=== PATIENT | female | born 1980 | race Caucasian/White ===

== ENCOUNTER 2020-04-03 16:10 | Emergency (ER) | payer OTHER, SELFPAY ==
[2020-04-03 16:23] VITALS: BP 146/105; PULSE 124; RESP 18; TEMP 37.1; O2SAT 99; BMI 31.9
[2020-04-03] MEDS: Lidocaine HCl 2 % MPF 5 ML VIAL SUBCUT (17:00)
--- NOTE | 2020-04-03 17:24 | ED_ITS ---
HPI - Wound/Laceration General Chief Complaint: Wound/Laceration Stated Complaint: Laceration Time Seen by Provider: 04/03/20 16:24 Source: patient Mode of arrival: ambulatory Limitations: no limitations History of Present Illness HPI narrative: Patient tells me that she was washing some dishes and a broken glass cut her left wrist causing a laceration. Her tetanus is out of date. Extremity Location: left: wrist Place: home Patient tetanus UTD: No Context: accidental Associated symptoms: none Related Data Allergies Allergy/AdvReac Type Severity Reaction Status Date / Time iodine [IODINE] Allergy Unknown RASH,HIVES, Verified 04/03/20 16:16 redburning rash SHELLFISH Allergy Unknown ANAPHYLAXIS Verified 04/03/20 16:16 Shellfish Allergy Unknown hives, Uncoded 04/03/20 16:16 itching, swelling, shortness of breath Review of Systems Review of Systems: Yes all other systems are reviewed and are negative Constitutional: Constitutional: Reports no additional constitutional complaints, Denies body ache(s), Denies chills, Denies fever(s), Denies headache(s) and Denies weakness Eyes: Eyes: Reports no additional eye complaints and Denies change in vision ENT: Reports system reviewed and no additional complaints, except as documented, Denies dizziness, Denies headache(s), Denies nasal congestion, Denies nasal discharge and Denies neck pain Cardiovascular: Cardiovascular: Reports no additional cardiovascular complaints, Denies chest pain, Denies leg edema and Denies dyspnea Respiratory: Respiratory: Reports no additional respiratory complaints, Denies cough and Denies dyspnea Gastrointestinal: Gastrointestinal: Reports no additional gastrointestinal complaints, Denies abdominal pain, Denies diarrhea, Denies nausea and Denies vomiting Genitourinary: Genitourinary: Reports no additional female genitourinary complaints and Denies urinary incontinence Musculoskeletal: Musculoskeletal: Reports no additional musculoskeletal complaints, Denies back pain, Denies arthralgias, Denies joint swelling, Denies neck pain, Denies numbness and Denies tingling Integumentary/Breasts: Skin/Breast: Reports system reviewed and no additional complaints, except as docu and Denies rash Comments: skin laceration Neurologic: Reports system reviewed and no additional complaints, except as documented, Denies Abnormal speech present, Denies dizziness, Denies headache(s), Denies numbness, Denies tingling and Denies weakness PMFSH Past Medical History Attestation statement: The following information was validated with the patient. Source: old records reviewed and nursing notes reviewed Social History Social History Advance Directives: No Advance Directives Information Provided: Yes Physical Exam Vital Signs: Vital Signs: Last Vital Signs Temp 98.7 F 04/03/20 16:23 Pulse 89 04/03/20 17:36 Resp 17 04/03/20 17:36 BP 152/86 H 04/03/20 17:36 Pulse Ox 98 04/03/20 17:36 Body Mass Index 31.9 Const: General: cooperative, healthy appearing, comfortable and no acute distress Orientation/consciousness: patient oriented x3 Limitations: no limitations HENMT: Head: Yes normal to inspection Ears: hearing grossly normal bilater ally General nose exam: Normal external nose present Face and sinus: Yes normal facial exam Mouth: Normal oral and palatal mucosa present Throat: Yes posterior oropharynx normal Eyes: General: appearance normal, both eyes and all related structures Pupils: Equal, round and reactive pupils present Neck: Neck: Yes normal visual inspection Chest: Chest palpation & inspection: normal inspection of the chest Resp: Effort & Inspection: normal respiratory effort Auscultation: clear to auscultation bilaterally Cardio: Rate: regular rate Rhythm: regular rhythm Peripheral pulses: Peripheral pulses 2+ throughout GI: Inspection: Yes normal to inspection Palpation (GI): Soft to palpation and nontender Auscultation: normal bowel sounds Back/Spine/Pelvis: Thoracic/Lumbar Spine: thoracic and lumbar spine normal to inspection Skin: General skin exam: no rashes or lesions noted Neuro: General: patient oriented x3, no focal motor deficits and normal sen sation to monofilament Cranial nerves: Yes Equal, round and reactive pupils present Cognition (Neuro): normal cognition Speech: No Abnormal speech present Gait exam (Neuro): Normal gait present Motor exam (neuro): 5/5 motor strength present throughout Extrem: Other: Over the distal volar wrist there is a 4 cm laceration with active bleeding. Full range of motion of wrist and hand. Palpable radial and ulnar pulses. Neurovascular intact distally General: Yes normal to inspection Course Course Course Narrative: See procedure note. Patient was given tetanus isn't up-to-date. Recommended return in 7-10 days for suture removal. Reviewed suture care at home. Full range of motion of the affected joint and distal extremity with no CMS changes. Reviewed worrisome signs and symptoms of when to return to the emergency department. Comfortable discharge home. Heart rate and blood pressure improved postprocedure Procedures Laceration Laceration 1: Site: upper extremity (wrist ) Side (If applicable): left Size (cm): 4 Description: linear Depth: simple, single layer Local Anesthetic: lidocaine 2% Pre-repair: wound explored and irrigated extensively Skin layer closed with: nylon Size (cm): 5-0 Number of sutures: 9 Technique: simple, interrupted MDM - Wound/Laceration Medical Records Attestation: I reviewed the patient's medical records. Lab Data Attestation: I reviewed the patient's lab results. Discharge Plan Discharge Clinical Impression: Laceration Patient Disposition: Home, Self-Care Instructions: Laceration (ED) Additional Instructions: Sutures out in 7-10 days Water may run over the laceration but no soaking in water Keep covered for 24 hrs Referrals: Joao Duff MD [Primary Care Provider] - 2 days (as needed ) Stand Alone Forms: Work/School Release Interventions: ED Discharge Assessment Last Done: 04/03/20 17:44 Discharge Date/Time: 04/03/20 17:45
[2020-04-03 17:36] VITALS: BP 152/86; PULSE 89; RESP 17; O2SAT 98
== END 2020-04-03 17:45 | disposition home or self-care (01) ==
PROVIDERS: Emergency Provider Emergency Medicine Emergency Medical Services; PCP Internal Medicine
DX: S61.512A Laceration without foreign body of left wrist, initial encounter (principal); W25.XXXA Contact with sharp glass, initial encounter; Y93.G1 Activity, food preparation and clean up; Y92.010 Kitchen of single-family (private) house as the place of occurrence of the external cause; Y99.9 Unspecified external cause status
CPT/HCPCS: 12002; 90471; 90715; 99283; 99284

== ENCOUNTER 2020-04-12 15:55 | Emergency (ER) | payer OTHER, SELFPAY ==
[2020-04-12 17:36] VITALS: BP 131/90; PULSE 86; RESP 16; TEMP 36.8; O2SAT 97; BMI 32.6
--- NOTE | 2020-04-12 18:07 | ED.WOUNDLAC ---
HPI - Wound/Laceration General Chief Complaint: Wound/Laceration Stated Complaint: suture removal Time Seen by Provider: 04/12/20 18:07 Source: patient Mode of arrival: ambulatory Limitations: no limitations History of Present Illness HPI narrative: Patient is a 39-year-old with no significant past medical history who is here for suture removal. On the April 03, she cut her left wrist on a piece of broken glass and received 9 sutures. She states since then she has had some yellow drainage from the wound, it is painful to touch and she states it is warm. She has also had some numbness and tingling in her hand. She does state she has full range of motion and can feel all of her fingers. Denies fevers. She also states she would like to go back to work starting in 2 days and would like a note. Related Data Previous Rx's Medication Instructions Recorded cephalexin [Keflex] 500 mg PO QID #28 cap 04/12/20 sulfamethoxazole-trimethoprim 1 tab PO Q12H #14 tab 04/12/20 [Bactrim DS] Allergies Allergy/AdvReac Type Severity Reaction Status Date / Time iodine [IODINE] Allergy Unknown RASH,HIVES, Verified 04/03/20 16:16 redburning rash SHELLFISH Allergy Unknown ANAPHYLAXIS Verified 04/03/20 16:16 Shellfish Allergy Unknown hives, Uncoded 04/03/20 16:16 itching, swelling, shortness of breath Review of Systems Review of Systems: Yes all other systems are reviewed and are negative PMFSH Social History Social History Advance Directives: No Advance Directives Information Provided: No Physical Exam Vital Signs: Vital Signs: Last Vital Signs Temp 98.3 F 04/12/20 17:36 Pulse 86 04/12/20 17:36 Resp 16 04/12/20 17:36 BP 131/90 H 04/12/20 17:36 Pulse Ox 97 04/12/20 17:36 Body Mass Index 32.6 Const: General: cooperative, healthy appearing, comfortable, no acute distress and well developed Orientation/consciousness: patient oriented x3 Limitations: no limitations HENMT: Head: Yes normal to inspection Eyes: General: appearance normal, both eyes and all related structures Neck: Neck: Yes normal visual inspection and Yes full ROM Resp: Effort & Inspection: normal respiratory effort and able to speak in complete sentences Skin: General skin exam: no rashes or lesions noted Neuro: General: patient oriented x3 Extrem: General: Yes normal to inspection Hand/finger images: 1. [address], skin is erythematous and warm, no drainage noted. Laceration is not completely healed. Course Course Course Narrative: 39-year-old female with no significant past medical history had sutures placed 9 days ago in this ED. Has had drainage, warmth and erythema, will give antibiotics, also wound is not completely healed, recommend she return in 3-4 days for recheck and suture removal. Reviewed worrisome signs on when to return to the ED. Discharge Plan Discharge Clinical Impression: Infected wound, Encounter for re-check of laceration wound Patient Disposition: Home, Self-Care Instructions: Wound Infection (ED) Prescriptions: New cephalexin [Keflex] 500 mg capsule 500 mg PO QID Qty: 28 RF: 0 sulfamethoxazole-trimethoprim [Bactrim DS] 800-160 mg tablet 1 tab PO Q12H Qty: 14 RF: 0 Referrals: Lacey Polk, BOOGIE [Primary Care Provider] - 2 days (Please have your sutures removed in 3-4 days, you can do this at your primary care doctor or any urgent care or return to the emergency department.)
== END 2020-04-12 18:40 | disposition home or self-care (01) ==
PROVIDERS: Emergency Provider Internal Medicine; PCP Hospitalist
DX: T81.41XA Infection following a procedure, superficial incisional surgical site, initial encounter (principal); M25.532 Pain in left wrist; Y83.9 Surgical procedure, unspecified as the cause of abnormal reaction of the patient, or of later complication, without mention of misadventure at the time of the procedure; Y92.9 Unspecified place or not applicable; Z79.899 Other long term (current) drug therapy
CPT/HCPCS: 99283

== ENCOUNTER 2020-11-28 12:56 | Outpatient (REF) | payer OTHER, SELFPAY ==
[2020-11-28 13:50] LABS: COVID-19 Test Negative (Negative)
== END 2020-11-28 12:57 | disposition home or self-care (01) ==
LOC: HO.LAB 12:56
PROVIDERS: Internal Medicine; PCP Internal Medicine; Visit Provider Nurse Practitioner Family
DX: R05 Cough (principal); Z20.822 Contact with and (suspected) exposure to COVID-19
CPT/HCPCS: 36415; 87635; C9803

== ENCOUNTER 2020-12-26 18:44 | Emergency (ER) | payer OTHER, SELFPAY | END 2020-12-26 21:48 | disposition left against medical advice (07) | PROVIDERS: Emergency Provider Emergency Medicine | DX: Z04.1 Encounter for examination and observation following transport accident (principal) ==

== ENCOUNTER 2021-01-19 12:17 | Outpatient (REF) | payer OTHER, SELFPAY | END 2021-01-19 12:18 | disposition home or self-care (01) | LOC: HO.LAB 12:17 | PROVIDERS: Nurse Practitioner Family; Visit Provider Internal Medicine | DX: R05.9 Cough, unspecified (principal); Z20.822 Contact with and (suspected) exposure to COVID-19 | CPT/HCPCS: U0003; U0005 ==

== ENCOUNTER 2021-06-23 19:36 | Emergency (ER) | payer OTHER, SELFPAY ==
--- NOTE | 2021-06-23 | ECG_ITS ---
Test Reason : chest pain Blood Pressure : / mmHG Vent. Rate : 091 BPM Atrial Rate : 091 BPM P-R Int : 162 ms QRS Dur : 082 ms QT Int : 334 ms P-R-T Axes : 000 135 145 degrees QTc Int : 410 ms Normal sinus rhythm Left posterior fascicular block Nonspecific T wave abnormality Abnormal ECG When compared with ECG of 22-NOV-2019 13:01, Nonspecific T wave abnormality now evident in Lateral leads Referred By: Generic ED Physician Electronically Signed By:UMESH BOYLE
--- NOTE | ~2021-06-23 | XR_ITS ---
EXAMINATION: XR CHEST CLINICAL INFORMATION: Shortness of breath COMPARISON: 11/22/2019 TECHNIQUE: Frontal view of the chest was obtained. FINDINGS: The lungs are well expanded. There is no focal consolidation, edema, or effusion. No pneumothorax. The cardiomediastinal silhouette is within normal limits. No acute osseous abnormality. XR/XR chest 1V IMPRESSION: No acute pulmonary finding.
[2021-06-23 20:21] VITALS: BP 130/74; PULSE 87; RESP 24; TEMP 37.7; O2SAT 99; BMI 33.4
--- NOTE | 2021-06-23 20:56 | ECG_ITS ---
Test Reason : cp Blood Pressure : / mmHG Vent. Rate : 088 BPM Atrial Rate : 088 BPM P-R Int : 168 ms QRS Dur : 084 ms QT Int : 342 ms P-R-T Axes : 045 048 048 degrees QTc Int : 413 ms Normal sinus rhythm Normal ECG When compared with ECG of 23-JUN-2021 20:13, Nonspecific T wave abnormality no longer evident in Lateral leads Referred By: Vinnie Saravia Electronically Signed By:Javi Thompson
[2021-06-23 21:30] VITALS: BP 134/75; PULSE 93; RESP 20; O2SAT 97
--- NOTE | 2021-06-23 21:30 | PC.NURSE ---
Pt given wh
--- NOTE | 2021-06-23 21:44 | ED_ITS ---
HPI - Chest Pain General Chief Complaint: Chest Pain Stated Complaint: chest pain Time Seen by Provider: 06/23/21 21:29 Source: patient Mode of arrival: ambulatory Limitations: no limitations History of Present Illness HPI narrative: Patient not vaccinated against COVID woke up today with body aches difficulty in breathing subjective fever headache saturating 99% on room air having right- sided chest pain Related Data Previous Rx's Medication Instructions Recorded azithromycin 250 mg tablet See Rx Instructions PO .COMPLEX #6 11/28/20 tab nicotine 21 mg/24 hr daily 1 patch TRANSDERMAL Q24H 28 Days 11/28/20 transdermal patch (Nicoderm CQ) #28 ea paroxetine HCl 10 mg tablet 10 mg PO DAILY #90 tab 12/22/20 Allergies Allergy/AdvReac Type Severity Reaction Status Date / Time SHELLFISH Allergy Severe ANAPHYLAXIS Verified 11/28/20 12:06 iodine [IODINE] Allergy Intermediate RASH,HIVES, Verified 11/28/20 12:06 redburning rash Shellfish Allergy Severe hives, Uncoded 11/28/20 12:06 itching, swelling, shortness of breath Review of Systems Review of Systems: Yes all other systems are reviewed and are negative PMFSH Past Medical History Medical History General medical examination Productive cough Surgical History History of D&C Family History Family History Mother Asthma Father Mental health disorder Social History Social History Housing: Apartment Alcohol intake: never Patient Tobacco Use Status: Current everyday Tobacco user Tobacco use type: Cigarette Cigarette Packs Per Day: 1 Cigarettes Per Day: 20 Advance Directives: No Advance Directives Information Provided: No service: No Current occupational status: employed Physical Exam Vital Signs: Vital Signs: Last Vital Signs Temp 99.8 F 06/23/21 20:21 Pulse 87 06/23/21 20:21 Resp 24 H 06/23/21 20:21 BP 130/74 06/23/21 20:21 Pulse Ox 99 06/23/21 20:21 BMI result Body Mass Index 33.4 Appearance: Alert. Oriented X3. No acute distress. Anxious Eyes: No pallor or icterus ENT: Pharynx normal. Oral Mucosa moist Neck: Normal inspection. Neck supple. CVS: Normal heart rate and rhythm. Pulses normal. Respiratory: No respiratory distress. Equal air entry bilateral, no wheezing/rales/rhonchi Abdomen: Soft and nontender. Bowel sounds are present, no mass palpable, no CVA tenderness Skin: Skin warm and dry. Normal skin color. Normal skin turgor. Extremities: No lower extremity edema. No calf tenderness Neuro: Oriented X 3. Discharge Plan Discharge Prescriptions: No Action paroxetine HCl 10 mg tablet 10 mg PO DAILY Qty: 90 1RF nicotine [Nicoderm CQ] 21 mg/24 hr patch 24 hour 1 patch transdermal Q24H 28 Days Qty: 28 2RF azithromycin 250 mg tablet See Rx Instructions PO .COMPLEX Qty: 6 0RF Rx Instructions: take 500 mg today (day 1), then 250 mg for 4 days (days 2-5) PO
[2021-06-23 23:12] LABS: COVID-19 Test Negative (Negative)
--- NOTE | 2021-06-23 23:32 | ED.GENADULT ---
HPI - General Adult General Chief complaint: Chest Pain Stated complaint: chest pain Time Seen by Provider: 06/23/21 21:29 Source: patient Mode of arrival: ambulatory Limitations: no limitations History of Present Illness HPI narrative: Patient been feeling sick for last 10 days with sore throat body aches headache and low-grade fever saturating 99% at room air. No cough does have right-sided chest pain when taking a deep breath patient did 3 home test for COVID negative not vaccinated against COVID no other family member sick no nausea no vomiting Related Data Previous Rx's Medication Instructions Recorded azithromycin 250 mg tablet See Rx Instructions PO .COMPLEX #6 11/28/20 tab nicotine 21 mg/24 hr daily 1 patch TRANSDERMAL Q24H 28 Days 11/28/20 transdermal patch (Nicoderm CQ) #28 ea paroxetine HCl 10 mg tablet 10 mg PO DAILY #90 tab 12/22/20 cefuroxime axetil 500 mg tablet 500 mg PO BID 10 Days #20 tab 06/24/21 ibuprofen 600 mg tablet 600 mg PO Q6H PRN #30 tab 06/24/21 Allergies Allergy/AdvReac Type Severity Reaction Status Date / Time SHELLFISH Allergy Severe ANAPHYLAXIS Verified 11/28/20 12:06 iodine [IODINE] Allergy Intermediate RASH,HIVES, Verified 11/28/20 12:06 redburning rash Shellfish Allergy Severe hives, Uncoded 11/28/20 12:06 itching, swelling, shortness of breath Review of Systems Review of Systems: Yes all other systems are reviewed and are negative PMFSH Past Medical History Medical History General medical examination Productive cough Surgical History History of D&C Family History Family History Mother Asthma Father Mental health disorder Social History Social History Housing: Apartment Alcohol intake: never Patient Tobacco Use Status: Current everyday Tobacco user Tobacco use type: Cigarette Cigarette Packs Per Day: 1 Cigarettes Per Day: 20 Advance Directives: No Advance Directives Information Provided: No service: No Current occupational status: employed Physical Exam ED Vital Signs: Vital Signs - 24 hr 06/23/21 20:21 06/23/21 21:30 06/24/21 00:34 Temperature 99.8 F 99.6 F Pulse Rate 87 93 81 Respiratory Rate 24 H 20 14 Blood Pressure 130/74 134/75 126/74 Pulse Oximetry 99 97 96 06/24/21 02:37 Temperature 99.5 F Pulse Rate 91 Respiratory Rate 21 H Blood Pressure 119/70 Pulse Oximetry 99 BMI result Body Mass Index 33.4 Appearance: Alert. Oriented X3. No acute distress. ENT: Inflamed right tonsil with exudate. Oral Mucosa moist Neck: Normal inspection. Neck supple. CVS: Normal heart rate and rhythm. Pulses normal. Respiratory: No respiratory distress. Equal air entry bilateral, no wheezing/rales/rhonchi Abdomen: Soft and nontender. No CVA tenderness Skin: Skin warm and dry. Normal skin color. Normal skin turgor. Neuro: Oriented X 3. Medical Decision Making MDM Narrative Medical decision making narrative: Patient with strep pharyngitis with leukocytosis for last 10 days IV fluids were given IV Rocephin was given patient was feeling much better will discharge patient home on Ceftin Lab Data Lab results reviewed: Yes I reviewed the patient's lab results. Result diagrams: 06/24/21 00:11 06/24/21 00:11 Labs: Lab Results 06/23/21 06/23/21 06/23/21 Range/Units 22:54 23:34 23:34 WBC (4.8-10.8) X10*3/uL RBC (4.20-5.50) X10*6/uL Hgb (12.0-16.0) g/dl Hct (37.0-47.0) % MCV (80.0-98.0) fL MCH (27.0-33.0) pg MCHC (31.0-35.0) g/dl RDW (11.0-16.0) % Plt Count (160-400) X10*3/uL MPV (9.4-12.3) fL Immature Gran % (Auto) (0.0-0.4) % Neut % (Auto) (45-73) % Lymph % (Auto) (20-40) % Buchanan % (Auto) (2-11) % Eos % (Auto) (0-4) % Baso % (Auto) (0-2) % Lymph # (Auto) (1.2-4.9) X10*3/uL Buchanan # (Auto) (0.1-1.2) X10*3/uL Eos # (Auto) (0.0-0.4) X10*3/uL Baso # (Auto) (0.0-0.2) X10*3/uL Abs Immat Gran (auto) (0.00-0.03) X10*3/uL Absolute Neuts (auto) (2.0-8.3) x10*3/uL Absolute Nucleated RBC (0.0-0.012) X10*3/uL Nucleated RBC % (auto) (0.0-0.2) /100WBC Sodium (135-145) mmol/L Potassium (3.3-5.1) mmol/L Chloride (96-108) mmol/L Carbon Dioxide (22-29) mmol/L Anion Gap (12-20) BUN (9-16) mg/dL Creatinine (0.5-1.4) mg/dL Estim Creat Clear Calc Estimated GFR Random Glucose (60-115) mg/dL Calcium (8.4-10.2) mg/dL COVID-19 (JOON) Negative (Negative) COVID-19 Clin Com See Note Influenza Type A ([facility]ACI) Negative (Negative) Influenza Type B (STACI) Negative (Negative) Influenza A & B Note See Note S. pyogenes GrpA STACI Positive A (Negative) 06/24/21 06/24/21 Range/Units 00:11 00:11 WBC 20.9 H (4.8-10.8) X10*3/uL RBC 4.29 (4.20-5.50) X10*6/uL Hgb 13.1 (12.0-16.0) g/dl Hct 38.6 (37.0-47.0) % MCV 90.0 (80.0-98.0) fL MCH 30.5 (27.0-33.0) pg MCHC 33.9 (31.0-35.0) g/dl RDW 13.1 (11.0-16.0) % Plt Count 319 (160-400) X10*3/uL MPV 9.8 (9.4-12.3) fL Immature Gran % (Auto) 0.5 H (0.0-0.4) % Neut % (Auto) 88.6 H (45-73) % Lymph % (Auto) 5.4 L (20-40) % Buchanan % (Auto) 5.2 (2-11) % Eos % (Auto) 0.1 (0-4) % Baso % (Auto) 0.2 (0-2) % Lymph # (Auto) 1.1 L (1.2-4.9) X10*3/uL Buchanan # (Auto) 1.1 (0.1-1.2) X10*3/uL Eos # (Auto) 0.0 (0.0-0.4) X10*3/uL Baso # (Auto) 0.0 (0.0-0.2) X10*3/uL Abs Immat Gran (auto) 0.10 H (0.00-0.03) X10*3/uL Absolute Neuts (auto) 18.5 H (2.0-8.3) x10*3/uL Absolute Nucleated RBC 0.000 (0.0-0.012) X10*3/uL Nucleated RBC % (auto) 0.0 (0.0-0.2) /100WBC Sodium 136 (135-145) mmol/L Potassium 3.9 (3.3-5.1) mmol/L Chloride 108 (96-108) mmol/L Carbon Dioxide 18 L (22-29) mmol/L Anion Gap 14 (12-20) BUN 9 (9-16) mg/dL Creatinine 0.68 (0.5-1.4) mg/dL Estim Creat Clear Calc 138.6 Estimated GFR > 60 Random Glucose 124 H (60-115) mg/dL Calcium 8.8 (8.4-10.2) mg/dL COVID-19 (JOON) (Negative) COVID-19 Clin Com Influenza Type A ([facility]ACI) (Negative) Influenza Type B (STACI) (Negative) Influenza A & B Note S. pyogenes GrpA STACI (Negative) Discharge Plan Discharge Clinical Impression: Strep pharyngitis Patient Disposition: Home, Self-Care Instructions: Strep Throat (ED) Additional Instructions: Drink plenty of fluids Take antibiotics as prescribed Follow with PCP if not better Prescriptions: New cefuroxime axetil 500 mg tablet 500 mg PO BID 10 Days Qty: 20 0RF ibuprofen 600 mg tablet 600 mg PO Q6H PRN (Reason: pain) Qty: 30 0RF No Action paroxetine HCl 10 mg tablet 10 mg PO DAILY Qty: 90 1RF nicotine [Nicoderm CQ] 21 mg/24 hr patch 24 hour 1 patch transdermal Q24H 28 Days Qty: 28 2RF azithromycin 250 mg tablet See Rx Instructions PO .COMPLEX Qty: 6 0RF Rx Instructions: take 500 mg today (day 1), then 250 mg for 4 days (days 2-5) PO Interventions: ED Discharge Assessment Last Done: 06/24/21 03:19 Discharge Date/Time: 06/24/21 03:31
[2021-06-23 23:44] LABS: IDNOW Serial# 08D9AD1C; Strep A Nucleic Acid Positive (Negative)
[2021-06-23 23:54] LABS: Influenza A Negative (Negative); Influenza B2 Negative (Negative)
[2021-06-24] MEDS: cefTRIAXone sodium 1 GM in 0.9 % Sodium Chloride 50 ML IV (00:01)
[2021-06-24] MEDS: Ketorolac Tromethamine 30 MG/ML VIAL IVPUSH (00:02)
[2021-06-24] MEDS: 0.9 % Sodium Chloride 1,000 ML 999 ML IV (00:03)
[2021-06-24 00:16] LABS: Basophils Percent Auto 0.2 % (0-2); Eosinophils Percent Auto 0.1 % (0-4); Hematocrit 38.6 % (37.0-47.0); Hemoglobin 13.1 g/dl (12.0-16.0); Imm Gran Pct Auto 0.5 % (0.0-0.4); Lymphocytes Absolute Auto 1.1 X10*3/uL (1.2-4.9); Lymphocytes Percent Auto 5.4 % (20-40); MANUAL DIFF FLAG NO; Mean Corpuscular HGB Conc 33.9 g/dl (31.0-35.0); Mean Corpuscular Hemoglobin 30.5 pg (27.0-33.0); Mean Platelet Volume 9.8 fL (9.4-12.3); Monocytes Absolute Auto 1.1 X10*3/uL (0.1-1.2); Monocytes Percent Auto 5.2 % (2-11); Neutrophils Absolute Auto 18.5 x10*3/uL (2.0-8.3); Neutrophils Percent Auto 88.6 % (45-73); Platelet Count 319 X10*3/uL (160-400); Red Blood Count 4.29 X10*6/uL (4.20-5.50); Red Cell Distribution Width 13.1 % (11.0-16.0); White Blood Count 20.9 X10*3/uL (4.8-10.8)
[2021-06-24 00:29] LABS: Anion Gap 14 (12-20); Blood Urea Nitrogen 9 mg/dL (9-16); Calcium 8.8 mg/dL (8.4-10.2); Carbon Dioxide 18 mmol/L (22-29); Chloride 108 mmol/L (96-108); Creatinine Clr Calc Pharmacy 138.6; Estimated Glomerular Filt Rate > 60; Glucose Random 124 mg/dL (60-115); Potassium 3.9 mmol/L (3.3-5.1); Sodium 136 mmol/L (135-145)
[2021-06-24 00:34] VITALS: BP 126/74; PULSE 81; RESP 14; TEMP 37.6; O2SAT 96
[2021-06-24 02:37] VITALS: BP 119/70; PULSE 91; RESP 21; TEMP 37.5; O2SAT 99
== END 2021-06-24 03:31 | disposition home or self-care (01) ==
PROVIDERS: Emergency Provider Internal Medicine; PCP Internal Medicine
DX: J02.0 Streptococcal pharyngitis (principal); R50.9 Fever, unspecified; Z20.822 Contact with and (suspected) exposure to COVID-19; F17.200 Nicotine dependence, unspecified, uncomplicated
CPT/HCPCS: 36415; 71045; 80048; 85025; 87502; 87635; 87651; 93005; 96361; 96365; 96372; 96375; 99284; J0696; J1885

== ENCOUNTER 2021-06-29 11:35 | Outpatient (REF) | payer OTHER, SELFPAY ==
[2021-06-29 12:02] LABS: MANUAL DIFF FLAG NO
[2021-06-29 13:17] LABS: Basophils Absolute Auto 0.1 X10*3/uL (0.0-0.2); Basophils Percent Auto 0.6 % (0-2); Eosinophils Absolute Auto 0.3 X10*3/uL (0.0-0.4); Eosinophils Percent Auto 2.8 % (0-4); Hematocrit 40.3 % (37.0-47.0); Imm Gran Abs Auto 0.05 X10*3/uL (0.00-0.03); Imm Gran Pct Auto 0.5 % (0.0-0.4); Lymphocytes Absolute Auto 3.5 X10*3/uL (1.2-4.9); Lymphocytes Percent Auto 37.5 % (20-40); Mean Corpuscular HGB Conc 32.3 g/dl (31.0-35.0); Mean Corpuscular Volume 92.9 fL (80.0-98.0); Mean Platelet Volume 10.1 fL (9.4-12.3); Monocytes Absolute Auto 0.6 X10*3/uL (0.1-1.2); Monocytes Percent Auto 5.9 % (2-11); Neutrophils Percent Auto 52.7 % (45-73); Platelet Count 498 X10*3/uL (160-400); Red Blood Count 4.34 X10*6/uL (4.20-5.50); Red Cell Distribution Width 13.2 % (11.0-16.0); White Blood Count 9.4 X10*3/uL (4.8-10.8)
[2021-06-29 13:46] LABS: Alanine Aminotransferase 12 U/L (0-31); Alkaline Phosphatase 58 U/L (39-117); Anion Gap 13 (12-20); Aspartate Amino Transferase 14 U/L (5-31); Bilirubin Total 0.5 mg/dL (0.0-1.0); Blood Urea Nitrogen 9 mg/dL (9-16); Calcium 9.7 mg/dL (8.4-10.2); Carbon Dioxide 27 mmol/L (22-29); Chloride 103 mmol/L (96-108); Cholesterol 183 mg/dL; Estimated Glomerular Filt Rate > 60; Glucose Fasting 91 mg/dL (60-99); HDL Cholesterol 37 mg/dL; LDL Cholesterol Calculated 134 mg/dl; Potassium 4.8 mmol/L (3.3-5.1); Sodium 138 mmol/L (135-145); Triglycerides 64 mg/dL
[2021-06-29 13:58] LABS: TSH reflex Free T4 1.18 uIU/mL (0.32-4.0)
[2021-06-29 14:18] LABS: Estimated Average Glucose 105 mg/dL; Hemoglobin A1c % 5.3 %
[2021-06-29 14:22] LABS: Folate 3.5 ng/mL (> or = 4.0); Vitamin B12 652 pg/mL (200-900)
[2021-07-04 13:41] LABS: Vitamin D 25-OH, D2 <4 ng/mL; Vitamin D 25-OH, D3 6 ng/mL; Vitamin D 25-OH, Total 6 ng/mL (30-100)
== END 2021-06-29 11:36 | disposition home or self-care (01) ==
LOC: HO.LAB 11:35
PROVIDERS: PCP Nurse Practitioner Acute Care; Visit Provider Nurse Practitioner Acute Care
DX: F41.9 Anxiety disorder, unspecified (principal)
CPT/HCPCS: 36415; 80053; 80061; 82306; 82607; 82746; 83036; 84443; 85025

== ENCOUNTER 2021-08-23 10:12 | Outpatient (REF) | payer OTHER, SELFPAY | END 2021-08-23 10:13 | disposition home or self-care (01) | LOC: HO.MAMMO 10:12 | PROVIDERS: Visit Provider Nurse Practitioner Acute Care | DX: Z13.89 Encounter for screening for other disorder (principal) ==

== ENCOUNTER 2021-10-14 20:56 | Emergency (ER) | payer OTHER, SELFPAY ==
[2021-10-14 21:28] VITALS: BP 127/77; PULSE 70; RESP 16; TEMP 36.4; O2SAT 96; BMI 30.4
[2021-10-14 22:32] LABS: Appearance Urine CLEAR; Color Urine YELLOW; Glucose Urine UA NEG (NEG); Leukocyte Esterase Urine NEG (NEG); Nitrite Urine NEG (NEG); Specific Gravity - Urine >= 1.030 (1.005-1.025); UACC Culture Trigger NO; Urine Blood 1+ (NEG); Urine Ketones NEG (NEG); Urine Protein 2+ MG/DL (NEG-TRACE)
--- NOTE | 2021-10-14 22:34 | ED_ITS ---
HPI - General Adult General Chief complaint: Back Pain/Injury Stated complaint: Abd pain/? Time Seen by Provider: 10/14/21 21:50 Source: patient Mode of arrival: ambulatory Limitations: no limitations History of Present Illness MD complaint: concern for , medication side effects Onset (ago): week(s) (few) Location: pelvis Radiation: non-radiation Severity: mild Quality: dull Relieving factors: none Exacerbating factors: none Associated symptoms: other (some mild low back pain feels , worried about her meds) Treatments prior to arrival: none Related Data Previous Rx's Medication Instructions Recorded cefuroxime axetil 500 mg tablet 500 mg PO BID 10 days #20 tabs 06/24/21 ibuprofen 600 mg tablet 600 mg PO Q6H PRN pain #30 tabs 06/24/21 folic acid 1 mg tablet 1 mg PO DAILY #30 tabs 06/29/21 cholecalciferol (vitamin D3) 50 50 mcg PO DAILY #30 caps 07/04/21 mcg (2,000 unit) capsule fluoxetine 20 mg tablet 20 mg PO DAILY #30 tabs 08/07/21 hydroxyzine HCl 50 mg tablet 50 mg PO TID PRN itching #84 tabs 08/07/21 sumatriptan succinate 25 mg tablet See Rx Instructions PO .COMPLEX 08/07/21 #20 tabs furosemide 20 mg tablet 10 mg PO Q OTHER DAY PRN edema #7 09/07/21 tabs varenicline 1 mg tablet 1 mg PO BID #56 tabs 09/07/21 Allergies Allergy/AdvReac Type Severity Reaction Status Date / Time SHELLFISH Allergy Severe ANAPHYLAXIS Verified 10/14/21 21:33 iodine [IODINE] Allergy Intermediate RASH,HIVES, Verified 10/14/21 21:33 redburning rash Shellfish Allergy Severe hives, Uncoded 10/14/21 21:33 itching, swelling, shortness of breath Review of Systems Review of Systems: Constitutional : No Weight loss, No Fever, No Chills, No Fatigue, No Malaise ENT/Mouth : No sore throat, No Rhinorrhea Eyes: No Eye Pain, No Swelling, No Redness Cardiovascular : No Chest Pain, No SOB, No Dyspnea on Exertion, No Orthopnea, No Edema, No Palpitations Respiratory : No Cough, No Sputum, No Wheezing Gastrointestinal : No Nausea, No Vomiting, No Diarrhea, No Constipation, No abdominal Pain Genitourinary : No Dysuria, No Urinary Frequency, No Hematuria, late on period Musculoskeletal : No joint pain, No Myalgias, No Joint Swelling Skin : No Skin Lesions, No rash PMFSH Past Medical History Attestation statement: The following information was validated with the patient. Medical History Anxiety General medical examination Generalized anxiety disorder Major depression, recurrent Migraine Productive cough Surgical History History of D&C Family History Family History Mother Asthma Father Mental health disorder Social History Social History Housing: Apartment Alcohol intake: never Patient Tobacco Use Status: Current everyday Tobacco user Tobacco use type: Cigarette Cigarette Packs Per Day: 1 Cigarettes Per Day: 20 e-Cigarette/Vaping Use: Never Used Advance Directives: No Advance Directives Information Provided: No service: No Current occupational status: employed Cognitive needs: No Hearing needs: No Vision needs: No Physical Exam ED Vital Signs: Vital Signs - 24 hr 10/14/21 21:28 Temperature 97.5 F Pulse Rate 70 Respiratory Rate 16 Blood Pressure 127/77 Pulse Oximetry 96 Oxygen Delivery Method Room Air BMI result Body Mass Index 30.4 Appearance: Alert. Oriented X3. No acute distress. Eyes: Pupils equal, round and reactive to light. ENT: Pharynx normal. Neck: Normal inspection. Neck supple. CVS: Normal heart rate and rhythm. Pulses normal. Respiratory: No respiratory distress. Breath sounds normal. Abdomen: Soft and nontender. no ttp at all not peritoneal Skin: Skin warm and dry. Normal skin color. Normal skin turgor. Extremities: No lower extremity edema. No calf ttp Neuro: Oriented X 3. No motor deficit. No sensory deficit. Course Course Course Narrative: handed her a list - of her meds with warnings but told her she needs to see her doctor first before abrupty stopping, she should stop topiramate though given cleft lip palate concerns Medical Decision Making MDM Narrative Medical decision making narrative: 41 yo female concern for has benign abdominal exam no bleeding I am not concerned for ectopic at this time will review her meds and given her list - needs to see her PCP before she stops them Lab Data Labs: Lab Results 10/14/21 10/14/21 Range/Units 22:25 22:25 Urine Color YELLOW Urine Appearance CLEAR Urine pH 6.0 (5.0-8.0) Ur Specific [place] >= 1.030 H (1.005-1.025) Urine Protein 2+ H (NEG-TRACE) MG/DL Urine Glucose (UA) NEG (NEG) MG/DL Urine Ketones NEG (NEG) MG/DL Urine Blood 1+ H (NEG) Urine Nitrite NEG (NEG) Ur Leukocyte Esterase NEG (NEG) Urine RBC 1-4 (0) /HPF Urine WBC 0 (0-4) /HPF Ur Squamous Epith Cells 1+ /LPF Urine Bacteria 1+ /LPF Urine Test POSITIVE H (NEGATIVE) Discharge Plan Discharge Clinical Impression: Positive test Patient Disposition: Home, Self-Care Instructions: First Trimester (ED) Additional Instructions: return to ED for any worsening symptoms or concerns positive test the only medication you should stop now is topiramate the rest you need to talk to your doctor before abruptly stopping Prescriptions: No Action folic acid 1 mg tablet 1 mg PO DAILY Qty: 30 2RF cholecalciferol (vitamin D3) 50 mcg (2,000 unit) capsule 50 mcg PO DAILY Qty: 30 2RF varenicline 1 mg tablet 1 mg PO BID Qty: 56 0RF furosemide 20 mg tablet 10 mg PO Q OTHER DAY PRN (Reason: edema) Qty: 7 0RF cefuroxime axetil 500 mg tablet 500 mg PO BID 10 Days Qty: 20 0RF ibuprofen 600 mg tablet 600 mg PO Q6H PRN (Reason: pain) Qty: 30 0RF fluoxetine 20 mg tablet 20 mg PO DAILY Qty: 30 2RF sumatriptan succinate 25 mg tablet See Rx Instructions PO .COMPLEX Qty: 20 0RF Rx Instructions: take 1 tab at onset of headache; if no relief may repeat 1 tab after at least 2 hrs; max = 4 tabs/24 hr PO hydroxyzine HCl 50 mg tablet 50 mg PO TID PRN (Reason: itching) Qty: 84 2RF
[2021-10-14 22:38] LABS: UPreg QC Valid YES; Urine Pregnancy POSITIVE (NEGATIVE)
[2021-10-14 22:44] LABS: Bacteria Urine 1+ /LPF; Squamous Epithelial Cell Urine 1+ /LPF; WBC Urine 0 /HPF (0-4)
== END 2021-10-14 23:13 | disposition home or self-care (01) ==
PROVIDERS: Emergency Provider Emergency Medicine; PCP Internal Medicine
DX: Z32.01 Encounter for pregnancy test, result positive (principal); O09.521 Supervision of elderly multigravida, first trimester; M54.50 Low back pain, unspecified; F17.200 Nicotine dependence, unspecified, uncomplicated; Z3A.01 Less than 8 weeks gestation of pregnancy
CPT/HCPCS: 81001; 81025; 99282

== ENCOUNTER 2022-08-20 17:50 | Emergency (ER) | payer OTHER, SELFPAY ==
[2022-08-20 19:10] VITALS: BP 148/86; PULSE 82; RESP 16; TEMP 36.9; O2SAT 98; BMI 31.2
--- NOTE | 2022-08-20 19:22 | ED_ITS ---
HPI - Back Pain/Injury General Chief Complaint: Back Pain/Injury <Debbi Anand NP - Last Filed: 08/20/22 19:23> Stated Complaint: ?Kidney infection <Debbi Anand NP - Last Filed: 08/20/22 19:23> Time Seen by Provider: 08/20/22 22:07 <Debbi Anand NP - Last Filed: 08/20/22 19:23> Source: patient <Edmar Singh MD - Last Filed: 08/20/22 22:44> Mode of arrival: ambulatory <Edmar Singh MD - Last Filed: 08/20/22 22:44> Limitations: no limitations <Edmar Singh MD - Last Filed: 08/20/22 22:44> History of Present Illness HPI Narrative: 41-year-old female who presents emergency department for evaluation of thoracic back pain, urinary frequency and a change in the order of her urine. The patient states she woke up Friday morning, 4 days prior to evaluation, with back pain. She states the pain is located across her thoracic back. The pain is a constant, pressure, twisting, squeezing pain which is worse with movement and bending. The pain is 10/10. She denies any numbness, weakness, loss of bowel or bladder control. She denied systemic symptoms such as fever, chills, rhinorrhea, sore throat, cough, chest pain, shortness of breath, vomiting or diarrhea. She states that the pain does cause nausea. The patient was taking Motrin 600 mg every 4-6 hours out relief for pain. She states she took 1 of her aunts oxycodone as and this medication only made her sleepy but did not relieve her pain. Pain states that she has noted urinary frequency with a metallic odor to her urine. She states that she did have a history of osteomyelitis of her great toes after having a manic care and was treated with vancomycin for 6 weeks. She states that her back pain feels similar to her toe pain in the sense that the pain is severe, constant , pressure-like pain. She cannot recount any injury that occurred prior to her onset of pain, she denies injection drug use. Rapid medical evaluation at triage note was reviewed by me <Edmar Singh MD - Last Filed: 08/20/22 22:44> Related Data Home Medications: Previous Rx's Medication Instructions Recorded cefuroxime axetil 500 mg tablet 500 mg PO BID 10 days #20 tabs 06/24/21 ibuprofen 600 mg tablet 600 mg PO Q6H PRN pain #30 tabs 06/24/21 folic acid 1 mg tablet 1 mg PO DAILY #30 tabs 06/29/21 cholecalciferol (vitamin D3) 50 50 mcg PO DAILY #30 caps 07/04/21 mcg (2,000 unit) capsule fluoxetine 20 mg tablet 20 mg PO DAILY #30 tabs 08/07/21 hydroxyzine HCl 50 mg tablet 50 mg PO TID PRN itching #84 tabs 08/07/21 furosemide 20 mg tablet 10 mg PO Q OTHER DAY PRN edema #7 09/07/21 tabs varenicline 1 mg tablet 1 mg PO BID #56 tabs 09/07/21 sumatriptan succinate 25 mg tablet See Rx Instructions PO .COMPLEX #9 10/15/21 tabs cyclobenzaprine 10 mg tablet 10 mg PO TID PRN pain, muscle 08/20/22 spasm #15 tabs morphine 15 mg immediate release 15 mg PO Q4-6H PRN pain #10 tabs 08/20/22 tablet <Debbi Anand NP - Last Filed: 08/20/22 19:23> Allergies/Adverse Reactions: Allergies Allergy/AdvReac Type Severity Reaction Status Date / Time shellfish derived Allergy Severe Anaphylaxis, Verified 05/06/22 15:39 Hives, Itching, swelling, Shortness of Breath iodine [IODINE] Allergy Intermediate RASH,HIVES, Verified 10/14/21 21:33 redburning rash <Debbi Anand NP - Last Filed: 08/20/22 19:23> Review of Systems Review of Systems: Yes all other systems are reviewed and are negative <Edmar Singh MD - Last Filed: 08/20/22 22:44> [facility] Past Medical History [facility] Narrative: Past medical history: Reviewed below, history of osteomyelitis of her great toes secondary to a pedicure requires 6 weeks of vancomycin <Edmar Singh MD - Last Filed: 08/20/22 22:44> Medical History: Medical History Anxiety General medical examination Generalized anxiety disorder Major depression, recurrent Migraine Productive cough <Debbi Anand NP - Last Filed: 08/20/22 19:23> Surgical History: Surgical History History of D&C <Debbi Anand NP - Last Filed: 08/20/22 19:23> Family History Family History: Family History Mother Asthma Father Mental health disorder <Debbi Anand NP - Last Filed: 08/20/22 19:23> Social History Social History: Social History Housing: Apartment Alcohol intake: never Patient Tobacco Use Status: Current everyday Tobacco user Tobacco use type: Cigarette Cigarette Packs Per Day: 1 Cigarettes Per Day: 20 Smoked in Last 30 Days: Yes e-Cigarette/Vaping Use: Never Used Use of substances other than those prescribed or required for medical reasons: Yes Substance Use Type: Marijuana Advance Directives: No Advance Directives Information Provided: No service: No Current occupational status: employed Cognitive needs: No Hearing needs: No Vision needs: No <Debbi Anand NP - Last Filed: 08/20/22 19:23> Physical Exam Vital Signs: Vital Signs: Last Vital Signs Temp 97.9 F 08/20/22 21:12 Pulse 78 08/20/22 21:12 Resp 08/20/22 21:12 BP 142/96 H 08/20/22 21:12 Pulse Ox 99 08/20/22 21:12 O2 Del Method Room Air 08/20/22 21:12 BMI result Body Mass Index 31.2 <Debbi Anand NP - Last Filed: 08/20/22 19:23> Vital Signs: Last Vital Signs Temp 97.9 F 08/20/22 21:12 Pulse 78 08/20/22 21:12 Resp 08/20/22 21:12 BP 142/96 H 08/20/22 21:12 Pulse Ox 99 08/20/22 21:12 O2 Del Method Room Air 08/20/22 21:12 BMI result Body Mass Index 31.2 <MD Yareli Fletcher Last Filed: 08/20/22 22:44> Const: General: cooperative and no acute distress <Edmar Singh MD - Last Filed: 08/20/22 22:44> Orientation/consciousness: oriented to person and oriented to place <Edmar Singh MD - Last Filed: 08/20/22 22:44> Limitations: no limitations <Edmar Singh MD - Last Filed: 08/20/22 22:44> HEENT: Head: Yes normal to inspection, Yes normocephalic and Yes atraumatic <MD Yareli Fletcher Last Filed: 08/20/22 22:44> Ears: external ears normal <Edmar Singh MD - Last Filed: 08/20/22 22:44> General nose exam: Normal external nose present <MD Yareli Fletcher Last Filed: 08/20/22 22:44> Face and sinus: Yes normal facial exam <MD Yareli Fletcher Last Filed: 08/20/22 22:44> Mouth: Normal oral and palatal mucosa present <MD Yareli Fletcher Last Filed: 08/20/22 22:44> Throat: Yes posterior oropharynx normal <MD Yareli Fletcher Last Filed: 08/20/22 22:44> Eyes: General: appearance normal, both eyes and all related structures <MD Yareli Fletcher Last Filed: 08/20/22 22:44> Pupils: Equal, round and reactive pupils present <MD Yareli Fletcher Last Filed: 08/20/22 22:44> Neck: Neck: Yes normal visual inspection, Yes no lymphadenopathy, Yes trachea midline and Yes supple <MD Yareli Fletcher Last Filed: 08/20/22 22:44> Chest: Chest palpation & inspection: normal inspection of the chest and normal palpation of entire chest wall <MD Yareli Fletcher Last Filed: 08/20/22 22:44> Resp: Effort & Inspection: normal respiratory effort and able to speak in complete sentences <Edmar Singh MD - Last Filed: 08/20/22 22:44> Auscultation: clear to auscultation bilaterally <Edmar Singh MD - Last Filed: 08/20/22 22:44> Cardio: Rate: regular rate <Edmar Singh MD - Last Filed: 08/20/22 22:44> Rhythm: regular rhythm <Edmar Singh MD - Last Filed: 08/20/22 22:44> Heart sounds: S1 normal heart sound present, S2 normal heart sound present and no murmurs <Edmar Singh MD - Last Filed: 08/20/22 22:44> GI: Inspection: Yes normal to inspection <MD Yareli Fletcher Last Filed: 08/20/22 22:44> Palpation (GI): Soft to palpation, nontender and no guarding <Edmar Singh MD - Last Filed: 08/20/22 22:44> Auscultation: normal bowel sounds <Edmar Singh MD - Last Filed: 08/20/22 22:44> Back/Spine/Pelvis: Other: Patient does have tenderness palpation of her thoracic vertebrae diffusely as well as her thoracic paraspinal muscles bilaterally with spasm of these muscles. She has significant pain with twisting of her back and with trying to sit up from stretcher. She has negative straight leg raises bilaterally <Edmar Singh MD - Last Filed: 08/20/22 22:44> Skin: General skin exam: no rashes or lesions noted <Edmar Singh MD - Last Filed: 08/20/22 22:44> Neuro: General: oriented to person and oriented to place <MD Yareli Fletcher Last Filed: 08/20/22 22:44> Cranial nerves: Yes CN's II-XII intact bilaterally and Yes Equal, round and reactive pupils present <MD Yareli Fletcher Last Filed: 08/20/22 22:44> Cognition (Neuro): normal cognition <Edmar Singh MD - Last Filed: 08/20/22 22:44> Motor exam (neuro): 5/5 motor strength present throughout <Edmar Singh MD - Last Filed: 08/20/22 22:44> Extrem: General: Yes normal to inspection <Edmar Singh MD - Last Filed: 08/20/22 22:44> Psych: Appearance: grossly normal <Edmar Singh MD - Last Filed: 08/20/22 22:44> Speech and movement: Normal speech and movement present <Edmar Singh MD - Last Filed: 08/20/22 22:44> Affect: normal affect <Edmar Singh MD - Last Filed: 08/20/22 22:44> Attitude: cooperative <Edmar Singh MD - Last Filed: 08/20/22 22:44> Thought process: Normal thought process present <Edmar Singh MD - Last Filed: 08/20/22 22:44> Thought content: Normal thought content present <Edmar Singh MD - Last Filed: 08/20/22 22:44> Course Course Course Narrative: This is a rapid medical exam. Deferred additional HPI, ROS, PE to primary provider. 41 yo female here with bilateral flank pain, urinary frequency, dysuria, vomiting. Will check labs, UA, ur preg. VSS <Debbi Anand NP - Last Filed: 08/20/22 19:23> Medical Decision Making Medical Decision Making MDM Narrative: 41-year-old female who presents emergency department for evaluation of t horacic back pain x4 days with no injury and no significant systemic symptoms. The pain is a constant pain which is severe and 10/10. Vital signs did reveal an elevated blood pressure of 148 of 86 otherwise were unremarkable. Examination of her back did reveal tenderness palpation of her thoracic vertebrae as well as the thoracic paraspinal muscles. There is also spasm of the thoracic paraspinal muscles with increased pain with movement and bending noted in the emergency department. Neurologic exam was nonfocal. 2242: My interpretation of laboratory evaluation is as follows: WBC elevated 11,300. Comprehensive metabolic panel was normal. Urine test was negative. Urinalysis revealed trace blood, 1+ protein negative leukocyte esterase negative nitrates. Microscopic urinalysis revealed 20 RBCs 5 WBCs trace bacteria 5 squamous cells. No evidence for urinary tract infection Patient's presentation is consistent with musculoskeletal injury of her thoracic back. Patient was advised to take ibuprofen and Tylenol for pain . For pain not relieved by these medications she was prescribed morphine. She was also given a prescription for Flexeril for muscle spasm. She was given Flexeril 10 mg orally morphine 15 mg orally here in the emergency department for pain. She told me that she is not driving and she is going to get a ride home. <Rashmi Singh MD - Last Filed: 08/20/22 22:44> Differential Diagnosis Differential diagnosis includes but is not limited to musculoskeletal sprain/brain, disc disease, osteo arthritis, infectious process, urinary tract infection, pyelonephritis <Edmar Singh MD - Last Filed: 08/20/22 22:44> Admission/Observation Consideration of admission/observation: Escalation of care including admission/observation considered <Edmar Singh MD - Last Filed: 08/20/22 22:44> Lab Data [facility] Lab Attestation statement: I reviewed the patient's lab results. <Edmar Singh MD - Last Filed: 08/20/22 22:44> See [facility] <Edmar Singh MD - Last Filed: 08/20/22 22:44> Result Diagrams: 08/20/22 20:01 08/20/22 20:01 <Debbi Anand NP - Last Filed: 08/20/22 19:23> Labs: Lab Results 08/20/22 08/20/22 08/20/22 Range/Units 19:34 19:34 20:01 WBC 11.3 H (4.8-10.8) X10*3/uL RBC 4.48 (4.20-5.50) X10*6/uL Hgb 13.4 (12.0-16.0) g/dl Hct 40.4 (37.0-47.0) % MCV 90.2 (80.0-98.0) fL MCH 29.9 (27.0-33.0) pg MCHC 33.2 (31.0-35.0) g/dl RDW 13.2 (11.0-16.0) % Plt Count 364 D (160-400) X10*3/uL MPV 9.8 (9.4-12.3) fL Immature Gran % (Auto) 0.3 (0.0-0.4) % Neut % (Auto) 54.8 (45-73) % Lymph % (Auto) 35.8 (20-40) % Island % (Auto) 6.4 (2-11) % Eos % (Auto) 2.3 (0-4) % Baso % (Auto) 0.4 (0-2) % Lymph # (Auto) 4.0 (1.2-4.9) X10*3/uL Island # (Auto) 0.7 (0.1-1.2) X10*3/uL Eos # (Auto) 0.3 (0.0-0.4) X10*3/uL Baso # (Auto) 0.0 (0.0-0.2) X10*3/uL Abs Immat Gran (auto) 0.03 (0.00-0.03) X10*3/uL Absolute Neuts (auto) 6.2 (2.0-8.3) x10*3/uL Absolute Nucleated RBC 0.000 (0.0-0.012) X10*3/uL Nucleated RBC % (auto) 0.0 (0.0-0.2) /100WBC Sodium (135-145) mmol/L Potassium (3.3-5.1) mmol/L Chloride (96-108) mmol/L Carbon Dioxide (22-29) mmol/L Anion Gap (12-20) BUN (9-16) mg/dL Creatinine (0.5-1.4) mg/dL Estim Creat Clear Calc Estimated GFR Random Glucose (60-115) mg/dL Calcium (8.4-10.2) mg/dL Total Bilirubin (0.0-1.0) mg/dL AST (5-31) U/L ALT (0-31) U/L Alkaline Phosphatase (39-117) U/L Total Protein (6.5-8.0) g/dL Albumin (3.5-5.0) g/dL Urine Color Yellow Urine Appearance Clear Urine pH 8.0 (5.0-9.0) Ur Specific [place] 1.020 (1.005-1.025) Urine Protein 30 (1+) H (Neg-Trace) mg/dL Urine Glucose (UA) Negative (Negative) mg/dL Urine Ketones Negative (Negative) mg/dL Urine Blood Trace H (Negative) Urine Nitrite Negative (Negative) Ur Leukocyte Esterase Negative (Negative) Urine RBC 11-20 H (0-2) /HPF Urine WBC 0-5 (0-5) /HPF Ur Squamous Epith Cells 3-5 (0-2) /HPF Urine Bacteria Trace (None Seen) Hyaline Casts 0-2 (0-2) /LPF Urine Test NEGATIVE (NEGATIVE) 08/20/22 Range/Units 20:01 WBC (4.8-10.8) X10*3/uL RBC (4.20-5.50) X10*6/uL Hgb (12.0-16.0) g/dl Hct (37.0-47.0) % MCV (80.0-98.0) fL MCH (27.0-33.0) pg MCHC (31.0-35.0) g/dl RDW (11.0-16.0) % Plt Count (160-400) X10*3/uL MPV (9.4-12.3) fL Immature Gran % (Auto) (0.0-0.4) % Neut % (Auto) (45-73) % Lymph % (Auto) (20-40) % Island % (Auto) (2-11) % Eos % (Auto) (0-4) % Baso % (Auto) (0-2) % Lymph # (Auto) (1.2-4.9) X10*3/uL Island # (Auto) (0.1-1.2) X10*3/uL Eos # (Auto) (0.0-0.4) X10*3/uL Baso # (Auto) (0.0-0.2) X10*3/uL Abs Immat Gran (auto) (0.00-0.03) X10*3/uL Absolute Neuts (auto) (2.0-8.3) x10*3/uL Absolute Nucleated RBC (0.0-0.012) X10*3/uL Nucleated RBC % (auto) (0.0-0.2) /100WBC Sodium 137 (135-145) mmol/L Potassium 4.0 (3.3-5.1) mmol/L Chloride 106 (96-108) mmol/L Carbon Dioxide 25 (22-29) mmol/L Anion Gap 10 L (12-20) BUN 8 L (9-16) mg/dL Creatinine 0.65 (0.5-1.4) mg/dL Estim Creat Clear Calc 138.6 Estimated GFR > 60 Random Glucose 93 (60-115) mg/dL Calcium 9.1 D (8.4-10.2) mg/dL Total Bilirubin 0.3 (0.0-1.0) mg/dL AST 13 (5-31) U/L ALT 13 (0-31) U/L Alkaline Phosphatase 62 (39-117) U/L Total Protein 6.5 (6.5-8.0) g/dL Albumin 4.0 (3.5-5.0) g/dL Urine Color Urine Appearance Urine pH (5.0-9.0) Ur Specific [place] (1.005-1.025) Urine Protein (Neg-Trace) mg/dL Urine Glucose (UA) (Negative) mg/dL Urine Ketones (Negative) mg/dL Urine Blood (Negative) Urine Nitrite (Negative) Ur Leukocyte Esterase (Negative) Urine RBC (0-2) /HPF Urine WBC (0-5) /HPF Ur Squamous Epith Cells (0-2) /HPF Urine Bacteria (None Seen) Hyaline Casts (0-2) /LPF Urine Test (NEGATIVE) <Debbi Anand, CELLULOID TRIMMER - Last Filed: 08/20/22 19:23> Lab Results 08/20/22 08/20/22 08/20/22 Range/Units 19:34 19:34 20:01 WBC 11.3 H (4.8-10.8) X10*3/uL RBC 4.48 (4.20-5.50) X10*6/uL Hgb 13.4 (12.0-16.0) g/dl Hct 40.4 (37.0-47.0) % MCV 90.2 (80.0-98.0) fL MCH 29.9 (27.0-33.0) pg MCHC 33.2 (31.0-35.0) g/dl RDW 13.2 (11.0-16.0) % Plt Count 364 D (160-400) X10*3/uL MPV 9.8 (9.4-12.3) fL Immature Gran % (Auto) 0.3 (0.0-0.4) % Neut % (Auto) 54.8 (45-73) % Lymph % (Auto) 35.8 (20-40) % Island % (Auto) 6.4 (2-11) % Eos % (Auto) 2.3 (0-4) % Baso % (Auto) 0.4 (0-2) % Lymph # (Auto) 4.0 (1.2-4.9) X10*3/uL Island # (Auto) 0.7 (0.1-1.2) X10*3/uL Eos # (Auto) 0.3 (0.0-0.4) X10*3/uL Baso # (Auto) 0.0 (0.0-0.2) X10*3/uL Abs Immat Gran (auto) 0.03 (0.00-0.03) X10*3/uL Absolute Neuts (auto) 6.2 (2.0-8.3) x10*3/uL Absolute Nucleated RBC 0.000 (0.0-0.012) X10*3/uL Nucleated RBC % (auto) 0.0 (0.0-0.2) /100WBC Sodium (135-145) mmol/L Potassium (3.3-5.1) mmol/L Chloride (96-108) mmol/L Carbon Dioxide (22-29) mmol/L Anion Gap (12-20) BUN (9-16) mg/dL Creatinine (0.5-1.4) mg/dL Estim Creat Clear Calc Estimated GFR Random Glucose (60-115) mg/dL Calcium (8.4-10.2) mg/dL Total Bilirubin (0.0-1.0) mg/dL AST (5-31) U/L ALT (0-31) U/L Alkaline Phosphatase (39-117) U/L Total Protein (6.5-8.0) g/dL Albumin (3.5-5.0) g/dL Urine Color Yellow Urine Appearance Clear Urine pH 8.0 (5.0-9.0) Ur Specific [place] 1.020 (1.005-1.025) Urine Protein 30 (1+) H (Neg-Trace) mg/dL Urine Glucose (UA) Negative (Negative) mg/dL Urine Ketones Negative (Negative) mg/dL Urine Blood Trace H (Negative) Urine Nitrite Negative (Negative) Ur Leukocyte Esterase Negative (Negative) Urine RBC 11-20 H (0-2) /HPF Urine WBC 0-5 (0-5) /HPF Ur Squamous Epith Cells 3-5 (0-2) /HPF Urine Bacteria Trace (None Seen) Hyaline Casts 0-2 (0-2) /LPF Urine Test NEGATIVE (NEGATIVE) 08/20/22 Range/Units 20:01 WBC (4.8-10.8) X10*3/uL RBC (4.20-5.50) X10*6/uL Hgb (12.0-16.0) g/dl Hct (37.0-47.0) % MCV (80.0-98.0) fL MCH (27.0-33.0) pg MCHC (31.0-35.0) g/dl RDW (11.0-16.0) % Plt Count (160-400) X10*3/uL MPV (9.4-12.3) fL Immature Gran % (Auto) (0.0-0.4) % Neut % (Auto) (45-73) % Lymph % (Auto) (20-40) % Island % (Auto) (2-11) % Eos % (Auto) (0-4) % Baso % (Auto) (0-2) % Lymph # (Auto) (1.2-4.9) X10*3/uL Island # (Auto) (0.1-1.2) X10*3/uL Eos # (Auto) (0.0-0.4) X10*3/uL Baso # (Auto) (0.0-0.2) X10*3/uL Abs Immat Gran (auto) (0.00-0.03) X10*3/uL Absolute Neuts (auto) (2.0-8.3) x10*3/uL Absolute Nucleated RBC (0.0-0.012) X10*3/uL Nucleated RBC % (auto) (0.0-0.2) /100WBC Sodium 137 (135-145) mmol/L Potassium 4.0 (3.3-5.1) mmol/L Chloride 106 (96-108) mmol/L Carbon Dioxide 25 (22-29) mmol/L Anion Gap 10 L (12-20) BUN 8 L (9-16) mg/dL Creatinine 0.65 (0.5-1.4) mg/dL Estim Creat Clear Calc 138.6 Estimated GFR > 60 Random Glucose 93 (60-115) mg/dL Calcium 9.1 D (8.4-10.2) mg/dL Total Bilirubin 0.3 (0.0-1.0) mg/dL AST 13 (5-31) U/L ALT 13 (0-31) U/L Alkaline Phosphatase 62 (39-117) U/L Total Protein 6.5 (6.5-8.0) g/dL Albumin 4.0 (3.5-5.0) g/dL Urine Color Urine Appearance Urine pH (5.0-9.0) Ur Specific [place] (1.005-1.025) Urine Protein (Neg-Trace) mg/dL Urine Glucose (UA) (Negative) mg/dL Urine Ketones (Negative) mg/dL Urine Blood (Negative) Urine Nitrite (Negative) Ur Leukocyte Esterase (Negative) Urine RBC (0-2) /HPF Urine WBC (0-5) /HPF Ur Squamous Epith Cells (0-2) /HPF Urine Bacteria (None Seen) Hyaline Casts (0-2) /LPF Urine Test (NEGATIVE) <Edmar Singh MD - Last Filed: 08/20/22 22:44> Discharge Plan Discharge Clinical Impression: Strain of muscle and tendon of back wall of thorax, initial encounter, Spasm of thoracic back muscle <Debbi Anand NP - Last Filed: 08/20/22 19:23> Patient Disposition: Home, Self-Care <Debbi Anand NP - Last Filed: 08/20/22 19:23> Instructions: Back Pain (ED) <Debbi Anand NP - Last Filed: 08/20/22 19:23> Additional Instructions: Back Pain Discharge Instructions: Take ibuprofen 200 mg pills, 2 pills every 6 hours as needed for pain. Take Tylenol (acetaminophen) 2 pills every 6 hours as needed for pain. For pain not relieved by ibuprofen or Tylenol take morphine 15 mg pills, 1 pill every 4 hours as needed for pain. This medication will make you sleepy, do not drive or work while taking this medication. Morphine is a narcotic medication and can be addicting. If you are concerned about addiction you can ask the pharmacist for less pills or do not get this prescription filled. Take Flexeril (cyclobenzaprine) 10 mg pills, 1 pill every 8 hours as needed for pain or muscle spasm. This is a prescription medication. This medication will make you sleepy, therefore do not drive or work while taking this medication. Apply ice for 15 minutes to the area that hurts on your back, then apply a heating a pad on low for 15 minutes. Do this 4-6 times a day to help reduce the pain in your back. Continue with normal activities as tolerated since staying in bed and not moving around will make your pain worse. You can also try over the counter lidocaine patches as directed on the box to help with the pain. Please return to the Emergency Department or see your doctor immediately if your symptoms get worse or if you develop any new symptoms that are concerning you. Follow up with your doctor in 2 day. Please read the other printed discharge instructions on back pain. YOU WERE TREATED WITH FLEXERIL 10 MG ORALLY AND MORPHINE 15 MG ORALLY. YOU CANNOT WALK HOME OR DRIVE HOME, YOU NEED SOMEONE TO PICK YOU UP FROM THE EMERGENCY DEPARTMENT SINCE BOTH OF THESE MEDICATIONS WILL MAKE YOU SLEEPY. <Debbi Anand NP - Last Filed: 08/20/22 19:23> Prescriptions: New cyclobenzaprine 10 mg tablet 10 mg PO TID PRN (Reason: pain, muscle spasm) Qty: 15 0RF morphine 15 mg tablet 15 mg PO Q4-6H PRN (Reason: pain) Qty: 10 0RF Rx Instructions: The patient may ask for partial fill; Partial Fill upon patient request. No Action folic acid 1 mg tablet 1 mg PO DAILY Qty: 30 2RF cholecalciferol (vitamin D3) 50 mcg (2,000 unit) capsule 50 mcg PO DAILY Qty: 30 2RF varenicline 1 mg tablet 1 mg PO BID Qty: 56 0RF furosemide 20 mg tablet 10 mg PO Q OTHER DAY PRN (Reason: edema) Qty: 7 0RF sumatriptan succinate 25 mg tablet See Rx Instructions PO .COMPLEX Qty: 9 3RF Rx Instructions: take 1 tab at onset of headache; if no relief may repeat 1 tab after at least 2 hrs; max = 4 tabs/24 hr PO cefuroxime axetil 500 mg tablet 500 mg PO BID 10 Days Qty: 20 0RF ibuprofen 600 mg tablet 600 mg PO Q6H PRN (Reason: pain) Qty: 30 0RF fluoxetine 20 mg tablet 20 mg PO DAILY Qty: 30 2RF hydroxyzine HCl 50 mg tablet 50 mg PO TID PRN (Reason: itching) Qty: 84 2RF <Debbi Anand [employer]LL[employer] TRIMMER - Last Filed: 08/20/22 19:23>
[2022-08-20 19:42] LABS: Appearance Urine Clear; Color Urine Yellow; Glucose Urine UA Negative (Negative); Leukocyte Esterase Urine Negative (Negative); Nitrite Urine Negative (Negative); UMIC TRIGGER UACC YES; Urine Blood Trace (Negative); Urine Ketones Negative (Negative); Urine Protein 30 (1+) mg/dL (Neg-Trace)
[2022-08-20 19:45] LABS: UPreg QC Valid YES; Urine Pregnancy NEGATIVE (NEGATIVE)
[2022-08-20 19:47] LABS: Bacteria Urine Trace (None Seen); Hyaline Casts Urine 0-2 /LPF (0-2); WBC Urine 0-5 /HPF (0-5)
[2022-08-20 20:10] LABS: MANUAL DIFF FLAG NO
[2022-08-20 20:12] LABS: Basophils Percent Auto 0.4 % (0-2); Eosinophils Absolute Auto 0.3 X10*3/uL (0.0-0.4); Eosinophils Percent Auto 2.3 % (0-4); Hematocrit 40.4 % (37.0-47.0); Hemoglobin 13.4 g/dl (12.0-16.0); Imm Gran Abs Auto 0.03 X10*3/uL (0.00-0.03); Imm Gran Pct Auto 0.3 % (0.0-0.4); Lymphocytes Percent Auto 35.8 % (20-40); Mean Corpuscular HGB Conc 33.2 g/dl (31.0-35.0); Mean Corpuscular Hemoglobin 29.9 pg (27.0-33.0); Mean Corpuscular Volume 90.2 fL (80.0-98.0); Mean Platelet Volume 9.8 fL (9.4-12.3); Monocytes Absolute Auto 0.7 X10*3/uL (0.1-1.2); Monocytes Percent Auto 6.4 % (2-11); Neutrophils Absolute Auto 6.2 x10*3/uL (2.0-8.3); Neutrophils Percent Auto 54.8 % (45-73); Platelet Count 364 X10*3/uL (160-400); Red Blood Count 4.48 X10*6/uL (4.20-5.50); Red Cell Distribution Width 13.2 % (11.0-16.0); White Blood Count 11.3 X10*3/uL (4.8-10.8)
[2022-08-20 20:47] LABS: Alanine Aminotransferase 13 U/L (0-31); Alkaline Phosphatase 62 U/L (39-117); Anion Gap 10 (12-20); Bilirubin Total 0.3 mg/dL (0.0-1.0); Chloride 106 mmol/L (96-108); Creatinine Clr Calc Pharmacy 138.6; Estimated Glomerular Filt Rate > 60; Sodium 137 mmol/L (135-145); Total Protein 6.5 g/dL (6.5-8.0)
[2022-08-20 20:49] LABS: Aspartate Amino Transferase 13 U/L (5-31); Blood Urea Nitrogen 8 mg/dL (9-16); Calcium 9.1 mg/dL (8.4-10.2); Carbon Dioxide 25 mmol/L (22-29); Glucose Random 93 mg/dL (60-115)
[2022-08-20 21:12] VITALS: BP 142/96; PULSE 78; RESP 16; TEMP 36.6; O2SAT 99
[2022-08-20 22:29] VITALS: BP 134/85; PULSE 76; RESP 16; TEMP 36.6; O2SAT 94
[2022-08-20] MEDS: Morphine Sulfate Immed Release 15 MG TABLET PO (22:51)
[2022-08-20] MEDS: Cyclobenzaprine HCl 10 MG TABLET PO (22:51)
--- NOTE | 2022-08-20 22:55 | PC.NURSE ---
pt medicated according to jun. pt reporting 10/10 pain. pt requested turkey sandwich. pt provided with sandwich at this time
--- NOTE | 2022-08-20 23:08 | PC.NURSE ---
pt calm and cooperative. vss. skin pwd. pt ambulatory at discharge. pt aunt in parking lot for ride home. pt provided with discharge packet. pt verbalized understanding of discharge plan
== END 2022-08-20 23:11 | disposition home or self-care (01) ==
PROVIDERS: Emergency Provider Emergency Medicine Emergency Medical Services; PCP Internal Medicine
DX: S29.012A Strain of muscle and tendon of back wall of thorax, initial encounter (principal); X58.XXXA Exposure to other specified factors, initial encounter; M62.830 Muscle spasm of back; F17.210 Nicotine dependence, cigarettes, uncomplicated; F12.90 Cannabis use, unspecified, uncomplicated; Y93.84 Activity, sleeping; Y92.032 Bedroom in apartment as the place of occurrence of the external cause; Y99.9 Unspecified external cause status
CPT/HCPCS: 36415; 80053; 81001; 81025; 85025; 99283; 99284

== ENCOUNTER 2022-08-26 20:00 | Emergency (ER) | payer OTHER, SELFPAY ==
--- NOTE | ~2022-08-26 | XR_ITS ---
EXAMINATION: XR ANKLE, RIGHT CLINICAL INFORMATION: Injury and pain. COMPARISON: None available. TECHNIQUE: AP, lateral, and mortise views of the right ankle. FINDINGS: The bones and soft tissues are normal. No fracture. Alignment is anatomic. Joint spaces are maintained. No joint effusion. There is a small calcaneal heel enthesophyte. XR/XR ankle RT 2V IMPRESSION: Small calcaneal heel enthesophyte. No visible acute fracture, dislocation or subluxation seen.
[2022-08-26 20:15] VITALS: BP 133/106; PULSE 108; RESP 18; TEMP 36.6; O2SAT 97; BMI 31.0
--- NOTE | 2022-08-26 20:15 | ED_ITS ---
HPI - Extremity Injury (Lower) General Chief Complaint: Extremity Injury, Lower Stated Complaint: right ankle pain Time Seen by Provider: 08/26/22 21:41 Source: patient Mode of arrival: ambulatory Limitations: no limitations History of Present Illness HPI Narrative: 42-year-old female presents with right ankle pain, swelling since yesterday, patient reports that she was walking with feels on, the strap broke, causing patient to will her ankle outwards, patient reports that when her ankle rolled, she fell to the ground, did not hit her head, no loss of consciousness. She reports ankle pain is 10/10, worse with movement and weight-bearing better at rest. No previous issues with ankle in the past. Denies numbness, tingling, fevers, chills, chest pain, shortness of breath, headache, vision changes, dizziness, weakness, nausea, vomiting, abdominal pain. Related Data Previous Rx's Medication Instructions Recorded cefuroxime axetil 500 mg tablet 500 mg PO BID 10 days #20 tabs 06/24/21 ibuprofen 600 mg tablet 600 mg PO Q6H PRN pain #30 tabs 06/24/21 folic acid 1 mg tablet 1 mg PO DAILY #30 tabs 06/29/21 cholecalciferol (vitamin D3) 50 50 mcg PO DAILY #30 caps 07/04/21 mcg (2,000 unit) capsule fluoxetine 20 mg tablet 20 mg PO DAILY #30 tabs 08/07/21 hydroxyzine HCl 50 mg tablet 50 mg PO TID PRN itching #84 tabs 08/07/21 furosemide 20 mg tablet 10 mg PO Q OTHER DAY PRN edema #7 09/07/21 tabs varenicline 1 mg tablet 1 mg PO BID #56 tabs 09/07/21 sumatriptan succinate 25 mg tablet See Rx Instructions PO .COMPLEX #9 10/15/21 tabs cyclobenzaprine 10 mg tablet 10 mg PO TID PRN pain, muscle 08/20/22 spasm #15 tabs morphine 15 mg immediate release 15 mg PO Q4-6H PRN pain #10 tabs 08/20/22 tablet ketorolac 10 mg tablet 10 mg PO TID PRN pain 5 days #15 08/26/22 tabs Allergies Allergy/AdvReac Type Severity Reaction Status Date / Time shellfish derived Allergy Severe Anaphylaxis, Verified 08/26/22 20:19 Hives, Itching, swelling, Shortness of Breath iodine [IODINE] Allergy Intermediate RASH,HIVES, Verified 08/26/22 20:19 redburning rash Review of Systems Review of Systems: Constitutional : No Weight loss, No Fever, No Chills, No Fatigue, No Malaise ENT/Mouth : No sore throat, No Rhinorrhea Eyes: No Eye Pain, No Swelling, No Redness Cardiovascular : No Chest Pain, No SOB, No Dyspnea on Exertion, No Orthopnea, No Edema, No Palpitations Respiratory : No Cough, No Sputum, No Wheezing Gastrointestinal : No Nausea, No Vomiting, No Diarrhea, No Constipation, No abdominal Pain, No Hematochezia, No Melena Genitourinary : No Dysuria, No Urinary Frequency, No Hematuria, Musculoskeletal : + joint pain, No Myalgias, + Joint Swelling Skin : No Skin Lesions, No rash Neuro : No Weakness, No Numbness, No Dizziness, No Headache Psych : No Anxiety/Panic, No Depression All other systems reviewed and are negative Yes all other systems are reviewed and are negative [facility] Past Medical History Attestation statement: The following information was validated with the patient. Source: old records reviewed and nursing notes reviewed Medical History Anxiety General medical examination Generalized anxiety disorder Major depression, recurrent Migraine Productive cough Surgical History History of D&C Family History Family History Mother Asthma Father Mental health disorder Social History Social History Housing: Apartment Alcohol intake: never Patient Tobacco Use Status: Current everyday Tobacco user Tobacco use type: Cigarette Cigarette Packs Per Day: 1 Cigarettes Per Day: 20 e-Cigarette/Vaping Use: Never Used Substance Use Type: Marijuana service: No Current occupational status: employed Cognitive needs: No Hearing needs: No Vision needs: No Physical Exam Vital Signs: Vital Signs: Last Vital Signs Temp 97.8 F 08/26/22 20:15 Pulse 108 H 08/26/22 20:15 Resp 18 08/26/22 20:15 BP 133/106 H 08/26/22 20:15 Pulse Ox 97 05/22/23 20:15 O2 Del Method Room Air 08/26/22 20:15 BMI result Body Mass Index 31.0 Vital signs stable Appearance: Alert.? Oriented X3.? No acute distress.? Head: Normocephalic, atraumatic, no step-offs or deformities Eyes: Pupils equal, round and reactive to light.? CVS: Normal heart rate and rhythm.? Pulses normal.? Respiratory: No respiratory distress.? Breath sounds normal.? Abdomen: Soft and nontender.? Skin: Skin warm and dry.? Normal skin color.? Normal skin turgor.? Extremities: No lower extremity edema.? No calf ttp. 5/5 strength to bilateral upper and lower extremitiespainful range of motion to right ankle, no step-offs or deformities, no laxity. 2+ dorsalis pedis, anterior tibialis, posterior tibialis pulses equal bilateral. No foot drop. Normal sensation distally. Patient ambulating with a limp favoring her left side. Pain with palpation to lateral & medial aspect of ankle/malleolus on the right ankle. Normal left ankle. No overlying skin changes, edema, ecchymosis. Neuro: Oriented X 3.? No motor deficit.? No sensory deficit. CN 2-12 intact . Normal [id number], [id number]-[id number], steady tandem gait. GCS 15. NIH stroke scale 0. Course Course Course Narrative: This is a rapid medical exam. Deferred additional HPI, ROS, PE to primary provider. 42yo female here with right ankle pain after fall yesterday when heel strap broke. Will check x-rays. VSS Reevaluation(s) Reevaluation #1: X-ray with small calcaneal heel spur, no fractures or dislocations. Will give Aircast, crutches and have patient follow-up with the orthopedic team. Will send home on Toradol peer Educated patient on diagnosis and treatment plan, answered all question, patient verbalizes understanding. At this time patient will be discharged home, advised to return with new or worsening symptoms. Educated on worrisome signs and symptoms and when to return. At this time I feel comfortable discharge home. Time: 21:46 Medical Decision Making Medical Decision Making [facility] Narrative: 2143 42-year-old female presents with right ankle pain status post rolling her ankle while wearing heels. Reports 10/10 pain. Physical exam painful range of motion to right ankle, no step-offs or deformities, no laxity. 2+ dorsalis pedis, anterior tibialis, posterior tibialis pulses equal bilateral. No foot drop. Normal sensation distally. Patient ambulating with a limp favoring her left side. Pain with palpation to lateral & medial aspect of ankle/malleolus on the right ankle. Normal left ankle. No overlying skin changes, edema, ecchymosis. This is likely ankle sprain/strain. Unlikely fracture, dislocation. No signs of neurovascular compromise or threatened limb. No signs of traumatic injury to head, neck, chest, abdomen pelvis. Plan imaging Differential Diagnosis Differential Diagnoses: The differential diagnosis associated with the presentation includes This is likely ankle sprain/strain. Unlikely fracture, dislocation. No signs of neurovascular compromise or threatened limb.No signs of traumatic injury to head, neck, chest, abdomen pelvis. Admission/Observation Consideration of admission/observation: Escalation of care including admission/observation considered Independent Interpretation I performed an independent interpretation of an: Plain X-Ray (Unremarkable) Prescription Management I considered prescription management with: Pain Medication Core Measures AMI core measures followed: Yes Measure exclusions: not indicated Critical Care Time Critical Care Time Critical Care Time: No Discharge Plan Discharge Clinical Impression: Ankle sprain Patient Disposition: Home, Self-Care Instructions: Ankle Sprain (ED), Crutch Instructions (ED), R.I.C.E. Treatment (ED) Additional Instructions: Take your medications as prescribed. If you were prescribed antibiotics today, it is important that you take your medication to their entirety, do not skip any doses, do not finish them early. Follow-up with your primary care provider this week. Follow-up with the orthopedic team if pain persists Return to the emergency department with new or worsening symptoms. Such as fevers, chills, chest pain, shortness of breath, nausea, vomiting, dizziness, headache, vision changes, lethargy In case of emergency call 911 Toradol has been sent to your pharmacy, you tolerated this well in the department. Please take this as prescribed do not take this with ibuprofen, or other NSAIDs, do not mix this with alcohol. Side effects of this medication including increased risk for bleeding and possible kidney injury. XR/XR ankle RT 2V IMPRESSION: Small calcaneal heel enthesophyte. No visible acute fracture, dislocation or subluxation seen. Prescriptions: New ketorolac 10 mg tablet 10 mg PO TID PRN (Reason: pain) 5 Days Qty: 15 0RF No Action folic acid 1 mg tablet 1 mg PO DAILY Qty: 30 2RF cholecalciferol (vitamin D3) 50 mcg (2,000 unit) capsule 50 mcg PO DAILY Qty: 30 2RF varenicline 1 mg tablet 1 mg PO BID Qty: 56 0RF furosemide 20 mg tablet 10 mg PO Q OTHER DAY PRN (Reason: edema) Qty: 7 0RF sumatriptan succinate 25 mg tablet See Rx Instructions PO .COMPLEX Qty: 9 3RF Rx Instructions: take 1 tab at onset of headache; if no relief may repeat 1 tab after at least 2 hrs; max = 4 tabs/24 hr PO cefuroxime axetil 500 mg tablet 500 mg PO BID 10 Days Qty: 20 0RF ibuprofen 600 mg tablet 600 mg PO Q6H PRN (Reason: pain) Qty: 30 0RF cyclobenzaprine 10 mg tablet 10 mg PO TID PRN (Reason: pain, muscle spasm) Qty: 15 0RF morphine 15 mg tablet 15 mg PO Q4-6H PRN (Reason: pain) Qty: 10 0RF Rx Instructions: The patient may ask for partial fill; Partial Fill upon patient request. fluoxetine 20 mg tablet 20 mg PO DAILY Qty: 30 2RF hydroxyzine HCl 50 mg tablet 50 mg PO TID PRN (Reason: itching) Qty: 84 2RF Referrals: Po,Elidia Faustin MD [Primary Care Provider] - 2 days [facility] [place] [facility] [Provider Group] - 1 week Stand Alone Forms: Work/School Release
[2022-08-26] MEDS: Ketorolac Tromethamine 15 MG/ML VIAL 30 MG IM (21:52)
== END 2022-08-26 22:07 | disposition home or self-care (01) ==
PROVIDERS: Emergency Provider Internal Medicine; PCP Internal Medicine
DX: S93.401A Sprain of unspecified ligament of right ankle, initial encounter (principal); X50.1XXA Overexertion from prolonged static or awkward postures, initial encounter; Y93.89 Activity, other specified; Y92.414 Local residential or business street as the place of occurrence of the external cause; Y99.9 Unspecified external cause status
CPT/HCPCS: 73600; 96372; 99283; 99284; J1885

== ENCOUNTER 2023-01-10 11:41 | Outpatient (REF) | payer OTHER, SELFPAY ==
--- NOTE | ~2023-01-10 | MM_ITS ---
EXAMINATION: MM SCREENING DIGITAL BREAST TOMOSYNTHESIS, BILATERAL CLINICAL INFORMATION: Screening. Asymptomatic. COMPARISON: Mammography: This is a baseline study. TECHNIQUE: Digital breast tomosynthesis is performed in both the craniocaudal and mediolateral oblique views along with computer-aided detection (CAD). Synthesized 2D images are generated from the tomosynthesis. FINDINGS: There are scattered areas of fibroglandular density (ACR BI-RADS breast composition Category b). There are no significant masses, abnormal calcifications, or other abnormalities. MM/MM tomosynthesis screening BI IMPRESSION: No mammographic evidence of malignancy. ASSESSMENT: BI-RADS BI-RADS 1 - Negative RECOMMENDATION: Routine annual mammography screening. 1 year F/U This examination should not preclude the clinical evaluation of a suspicious palpable abnormality. This patient's information was entered into a reminder system with a target due date for their next mammogram.
== END 2023-01-10 11:42 | disposition home or self-care (01) ==
LOC: HO.MAMMO 11:41
PROVIDERS: PCP Internal Medicine; Visit Provider Internal Medicine
DX: Z12.31 Encounter for screening mammogram for malignant neoplasm of breast (principal)
CPT/HCPCS: 77063; 77067

== ENCOUNTER → 2023-01-10 12:15 | Outpatient (BNV) | payer OTHER, SELFPAY | PROVIDERS: PCP Internal Medicine; Visit Provider Radiology Diagnostic Radiology | DX: Z12.31 Encounter for screening mammogram for malignant neoplasm of breast (principal) | CPT/HCPCS: 77063; 77067 ==

== ENCOUNTER 2023-01-13 09:20 | Outpatient (AMB) | payer OTHER, SELFPAY ==
--- NOTE | 2023-01-13 09:23 | MHC.PC.OV ---
Vital Signs 01/13/23 09:25 Height 5 ft 9 in Weight 225 lb BMI 33.2 BP 110/70 Blood Pressure Location Lt brachial Position Sitting Pulse 95 Pulse Source Pulse Oximeter Pulse Oximetry (%) 98 Oxygen Delivery Method Room Air Intake Visit Reasons: Physical exam Intake Note: Patient is here today for a physical. Complaint of swelling of both feet and hands, constant migraines with nausea, sweating, sensitivity to light and sound, dizziness with possible stars. Nutrition Coordinator Required: No Kiln Labourer: Not Required per policy Accompanied by: Self / Same As Patient Allergies shellfish derived Allergy (Severe, Verified 01/13/23 09:25) Anaphylaxis, Hives, Itching, swelling, Shortness of Breath iodine [IODINE] Allergy (Intermediate, Verified 01/13/23 09:25) RASH,HIVES, redburning rash Tobacco use date assessed: 01/13/23 Dental Screening Dental Screen Date: 01/13/23 Did you have a dental visit in the last 12 months?: No Did you have a dental problem in the last 6 months where you did not have access to dental care?: No Was dental information given to patient?: No HPI HPI Comments History of Present Illness Details 42-year-old female past medical history significant for folate deficiency anemia, vitamin-D deficiency, migraines, depression and anxiety. Patient reports she is currently on a wait list to establish care for counseling with [facility]. Patient requesting refill on her hydroxyzine, cyclobenzaprine she states she uses for muscle spasm, and for Varencline to help her quit smoking. Patient reports she was previously on in the past and it worked really well for her. Refill sent to patient's pharmacy. Patient reports symptoms urinary incontinence she states at time she is running to the bathroom and she will dribble on herself she also reports occasionally when she coughs or sneezes she will urinate. Addmits to drinking coffee from the time she wakes in the morning until 15:00. Mammogram obtained: 01/10/2023 Eye exam:Recommended every couple years. Pap smear: [facility] Immunizations: Flu shot recommended [facility] Medical History Generalized anxiety disorder Major depression, recurrent Migraine Anxiety Productive cough General medical examination Surgical History History of D&C Family History Mother Asthma Father Mental health disorder Social History (Updated 01/13/23 @ 09:51 by HERRERA Eugene) Housing: Apartment Alcohol intake: never Patient Tobacco Use Status: Current everyday Tobacco user Tobacco use type: Cigarette Cigarette Packs Per Day: 1 Cigarettes Per Day: 20 e-Cigarette/Vaping Use: Never Used Second Hand Smoke Exposure: Yes service: No Current occupational status: employed Cognitive needs: No Hearing needs: No Vision needs: Yes (glasses) Female Reproductive History Menstrual control method: none Questionnaire PHQ-9 Over the last 2 weeks, how often have you been bothered by any of the following problems? 1. Little interest or pleasure in doing things: nearly every day 2. Feeling down, depressed, or hopeless: nearly every day 3. Trouble falling or staying asleep, or sleeping too much: nearly every day (trouble falling asleep) 4. Feeling tired or having little energy: several days 5. Poor appetite or overeating: nearly every day 6. Feeling bad about yourself - or that you are a failure or have let yourself or your family down: several days 7. Trouble concentrating on things, such as reading the newspaper or watching television: not at all 8. Moving or speaking so slowly that other people could have noticed. Or the opposite - being so fidgety or restless that you have been moving around a lot more than usual: several days 9. Thoughts that you would be better off or of hurting yourself in some way: not at all Total score: 15 Depression Screening Interpretation: Positive Depression Screening Done: Yes 63146 - PHQ-9 Billing: Yes Source: Developed by Drs. Hebert Wilkinson, Sejal Thomas, Leon Colin and colleagues, with an educational benjamin from [employer]. Thrive Questionnaire Date Thrive assessed: 01/13/23 I am a: Patient What is your living situation today?: I have a steady place to live Within the past 12 months, did the food you bought not last and you didn't have the money to get more?: Never true Within the past 12 months, did you worry whether your food would run out before you got money to buy more?: Never true Do you have trouble paying for medicines?: No Do you have trouble getting transportation to medical appointments?: No Do you have trouble paying your heating and electricity bill?: No Do you have trouble taking care of your child, family member or friend?: No Do you have trouble with day-to-day activities such as bathing, preparing meals, shopping, managing finances, etc.?: No Are you currently unemployed and looking for a job?: No Are you interested in more education?: No Currently or been in a relationship where the following occur: no concerns reported AUDIT C Alcohol Use Questionnaire (AUDIT-C) 1. How often do you have a drink containing alcohol?: Monthly or less 2. How many drinks containing alcohol do you have on a typical day when you are drinking?: 1 or 2 Total Score: 1 DEBBY-7 AMB Questionnaire DEBBY-7 Date DEBBY - 7 assessed: 01/13/23 Feeling nervous, anxious, or on edge: 3 = Nearly every day Not being able to stop or control worryin = Nearly every day Worrying too much about different things: 3 = Nearly every day Trouble relaxin = Nearly every day Being so restless that it is hard to sit still: 3 = Nearly every day Becoming easily annoyed or irritable: 3 = Nearly every day Feeling afraid as if something awful might happen: 2 = More than half the days Total DEBBY-7 score (0-4 normal; 5-9 mild; 10-14 moderate; 15-21 severe): 20 Source: Developed by Drs. Hebert Wilkinson, Sejal Thomas, Leon Colin and colleagues, with an educational benjamin from [employer]. DEBBY-7 Assessment Billing DEBBY-7 Assessment Tool: DEBBY-7 Assessment 43251 Review of Systems Const Denies chills, Denies fatigue, Denies fever(s) and Denies poor appetite Eyes Denies no additional complaints ENT Reports Normal hearing present Card Denies chest pain, Denies syncope, Denies rapid heart rate and Denies dyspnea Resp Denies cough and Denies dyspnea GI Denies change in stool character, Denies constipation, Denies diarrhea, Denies nausea and Denies vomiting Denies urinary frequency, Denies dysuria and Denies urinary urgency Neuro Reports Normal hearing present, Denies confusion and Denies syncope Psych Denies confusion Endo Denies fatigue Physical exam (Primary Care) Vital Signs: Last Vital Signs Pulse 95 01/13/23 09:25 BP 110/70 01/13/23 09:25 Pulse Ox 98 01/13/23 09:25 Oxygen Delivery Method Room Air 01/13/23 09:25 BMI result Body Mass Index 33.2 Tobacco/Smoking Status: Tobacco use Status Tobacco use date assessed 01/13/23 01/13/23 09:25 Patient Tobacco Use Status Current everyday Tobacco 01/13/23 09:51 Tobacco use type Cigarette 01/13/23 09:51 e-Cigarette/Vaping Use Never Used 01/13/23 09:51 PHQ-9: PHQ-9 Score PHQ-9: Total score 15 01/13/23 09:54 Depression Screening Interpretation: Positive Thrive Assessment: Date of Thrive Assessment Date Thrive assessed 01/13/23 01/13/23 09:25 Currently or been in a relationship where the following occur: no concerns reported Const General: No confusion Orientation/consciousness: No confusion HENMT Head: Yes normocephalic and Yes atraumatic Ears: external ears normal and TM's normal bilaterally General nose exam: Normal external nose present and Normal nasal mucous membranes and turbinates present Face and sinus: Yes normal facial exam and Yes sinuses nontender Mouth: moist mucous membranes Throat: Yes tonsils normal Eyes Conjunctivae: conjunctivae normal Sclerae: sclerae normal Pupils: Equal, round and reactive pupils present and Pupils normal by confrontation EOM: EOMs intact bilaterally Direct Ophthalmoscopy: normal light reflex Neck Neck: Yes no lymphadenopathy and Yes supple Thyroid: Thyroid normal Chest Chest palpation & inspection: normal inspection of the chest Resp Effort & Inspection: normal respiratory effort Auscultation: clear to auscultation bilaterally, no crackles, no rhonchi and no wheezes Cardio Rate: regular rate Rhythm: regular rhythm Peripheral pulses: radial pulses present and dorsalis pedis present GI Inspection: Yes normal to inspection Palpation (GI): Soft to palpation, nontender and No hepatosplenomegaly present Auscultation: normoactive bowel sounds Skin General skin exam: no rashes or lesions noted Neuro General: No confusion Cranial nerves: Yes Equal, round and reactive pupils present and Yes Normal hearing present Cognition (Neuro): normal cognition Gait exam (Neuro): Normal gait present Motor exam (neuro): 5/5 motor strength present throughout Deep tendon reflexes (DTR's): Right brachioradialis reflex intensity grade: 2+, Left brachioradialis reflex intensity grade: 2+, Right patellar reflex intensity grade: 2+ and Left patellar reflex intensity grade: 2+ Extrem General: No edema Assessment and Plan Assessment & Plan (1) Leg edema: Code(s): R60.0 - Localized edema Plan: Continue to take Lasix as needed for lower extremity edema. (2) Major depression, single episode: Code(s): F32.9 - Major depressive disorder, single episode, unspecified Qualifiers: Active/Remission status: currently active Major depression episode severity: moderate Qualified Code(s): F32.1 - Major depressive disorder, single episode, moderate Plan: Patient denies SI/HI. Currently on a wait list for [facility]. (3) Nicotine dependence: Code(s): F17.200 - Nicotine dependence, unspecified, uncomplicated Qualifiers: Nicotine product type: cigarettes Substance use status: uncomplicated Qualified Code(s): F17.210 - Nicotine dependence, cigarettes, uncomplicated Plan: Refill sent for Varenicline Strongly advised to stop. (4) Anxiety about health: Code(s): F41.8 - Other specified anxiety disorders Plan: Refill sent on hydroxyzine t.i.d. as needed for anxiety. Continue to establish care with [facility]. (5) Stress incontinence, female: Code(s): N39.3 - Stress incontinence (female) (male) Plan: Urinalysis ordered to rule out urinary tract infection. Patient advised to decrease caffeine consumption and avoid sodas and carbonated beverages, quit smoking and preform kegel exercises. Plan Follow up in 1 year or sooner if needed. Orders: Orders Complete Blood Count Auto Diff Today Z13.0 - Encounter for screening for diseases of the blood and blood-forming organs and certain disorders involving the immune mechanism Lipid Panel Today Z13.220 - Encounter for screening for lipoid disorders TSH reflex Free T4 Today Z13.29 - Encounter for screening for other suspected endocrine disorder UA CC w/rflx Micro + Cult Today R30.0 - Dysuria Comprehensive [place]. Panel Fast Today Z13.1 - Encounter for screening for diabetes mellitus Referrals Ophthalmology Referral Z01.00 - Encounter for examination of eyes and vision without abnormal findings Medications: Refilled varenicline 1 mg PO BID 56 tabs 0RF F17.200 - Nicotine dependence, unspecified, uncomplicated hydroxyzine HCl 50 mg PO TID PRN 84 tabs 2RF itching F41.9 - Anxiety disorder, unspecified furosemide 10 mg (1/2 x 20 mg) PO Q OTHER DAY PRN 7 tabs 0RF edema R60.0 - Localized edema cyclobenzaprine 10 mg PO TID PRN 15 tabs 0RF pain, muscle spasm Coding Level of Care Code Est Pt Prev Care 40-64y(17023) Diagnoses Leg edema R60.0 Current moderate episode of major depressive disorder without prior episode F32.1 Active/Remission status: currently active Major depression episode severity: moderate Cigarette nicotine dependence without complication F17.210 Nicotine product type: cigarettes Substance use status: uncomplicated Anxiety about health F41.8 Stress incontinence, female N39.3 Additional Codes DEBBY-7 Assessment Billing - DEBBY-7 Assessment Tool: DEBBY-7 Assessment 72341 ([id number])
[2023-01-13 09:25] VITALS: BP 110/70; PULSE 95; O2SAT 98; BMI 33.2
== END 2023-01-13 10:08 | disposition home or self-care (01) ==
PROVIDERS: PCP Internal Medicine; Visit Provider Nurse Practitioner Family
DX: Z00.00 Encounter for general adult medical examination without abnormal findings (principal); F33.1 Major depressive disorder, recurrent, moderate; F17.210 Nicotine dependence, cigarettes, uncomplicated; N39.3 Stress incontinence (female) (male)
CPT/HCPCS: 96127; 99396